=== PATIENT | male | born 1970 | race African-American/Black ===

== ENCOUNTER 2022-07-09 08:46 | Emergency (ER) | payer SELFPAY ==
[~2022-07-09] VITALS: Ht 185.4 cm; Wt 80.0 kg
[2022-07-09] MEDS ORDERED: TOPUD MT (10:51)
[2022-07-09] MEDS ORDERED: NAPR-679 MT (10:51)
[2022-07-09 11:00] VITALS: BP 113/67
[2022-07-09] MEDS ORDERED: IBUPROFEN 400MG TABLET PO ONE (11:00)
[2022-07-09] MEDS ORDERED: ACETAMINOPHEN 325MG TABLET PO ONE (11:00)
== END 2022-07-09 11:17 | disposition home or self-care (01) ==
LOC: ER 08:46
DX: M79.18 Myalgia, other site (principal); M54.2 Cervicalgia
CPT/HCPCS: 99283